=== PATIENT | male | born 1960 | race Two or more races ===

== ENCOUNTER 2017-01-20 04:43 | Emergency (ER) | payer OTHER ==
[~2017-01-20] VITALS: Ht 177.8 cm; Wt 102.1 kg
--- NOTE | 2017-01-20 04:50 | NUR ---
TO BED 1 A 56 YO MALE BIBSELF W C/O DIFFICULTY SWALLOWING, "FEELS LIKE THERE'S SOMETHING STUCK." X2 HRS. NAD NOTED, VSS, AFEBRILE. INITIATED COMFORT MEASURES. AWAITING FOR ER MD CORTEZ.
--- NOTE | 2017-01-20 04:56 | NUR ---
Dr Ramos at bedside.
[2017-01-20] MEDS ORDERED: DEXAMETHASONE SOD PHOSPHATE 10 MG/ML VIAL ONE (05:04)
--- NOTE | 2017-01-20 05:10 | NUR ---
Patient discharged to home in stable condition. Written and verbal after care instructions given. Patient verbalizes understanding of instruction. Patient is ambulatory with steady gait, accompanied by family. no further complaints.
[2017-01-20 05:12] VITALS: BP 157/97
[2017-01-20] MEDS ORDERED: DEXAMETHASONE SOD PHOSPHATE 4 MG/ML VIAL IM ONE (05:30)
== END 2017-01-20 05:16 | disposition home or self-care (01) ==
LOC: ER 04:46
DX: K12.2 Cellulitis and abscess of mouth (principal); R13.10 Dysphagia, unspecified
CPT/HCPCS: A4606; J1100; Z7610

== ENCOUNTER 2017-07-17 03:11 | Emergency (ER) | payer OTHER ==
[~2017-07-17] VITALS: Ht 177.8 cm; Wt 81.6 kg
--- NOTE | 2017-07-17 04:37 | NUR ---
PT AMBULATORY TO ER BED 5. PT BIB FAMILY FROM HOME C/O "HIGH BLOOD PRESSURE". PT PLACED IN GOWN AND ON COUNTER ROLLER. VSS/RESP EVEN UNLABORED/NAD NOTED/SKIN WARM AND DRY/DENIES N-V-D/AOX4. AWAITING MD CORTEZ.
--- NOTE | 2017-07-17 04:47 | NUR ---
MD AT BEDSIDE FOR EVAL. EMT AT BEDSIDE FOR EKG.
[2017-07-17] MEDS ORDERED: ALPRAZOLAM 0.5 MG TABLET ONE (04:58)
[2017-07-17] MEDS ORDERED: ONDANSETRON 4 MG TAB.RAPDIS ONE (04:58)
[2017-07-17] MEDS ORDERED: ONDANSETRON 4 MG TAB.RAPDIS SL ONE (05:00)
[2017-07-17] MEDS ORDERED: ALPRAZOLAM 0.5 MG TABLET PO ONE (05:00)
[2017-07-17 05:04] LABS: APPEARANCE,URINE CLEAR (CLEAR); BILIRUBIN,URINE NEGATIVE (NEGATIVE); BLOOD, URINE NEGATIVE Ery/uL (NEGATIVE); COLOR,URINE YELLOW (YELLOW); KETONES,URINE NEGATIVE (NEGATIVE); LEUKOCYTE ESTERASE ,URINE NEGATIVE (NEGATIVE); NITRITE, URINE NEGATIVE (NEGATIVE); PH,URINE 5.5 (5.0-8.0); PROTEIN,URINE NEGATIVE (NEGATIVE); UGLUCOSE NEGATIVE (NEGATIVE); UROBILINOGEN,URINE 0.2 EU/dL (0.2)
--- NOTE | 2017-07-17 05:52 | NUR ---
Patient discharged to home in stable condition. Written and verbal after care instructions given. Patient verbalizes understanding of instruction. Patient ambulatory with a steady gait.
[2017-07-17 05:53] VITALS: BP 138/99
== END 2017-07-17 05:53 | disposition home or self-care (01) ==
LOC: ER 03:13
DX: I10 Essential (primary) hypertension (principal); F10.10 Alcohol abuse, uncomplicated
CPT/HCPCS: 81000-TC; A4606; Q0162; Z7610

== ENCOUNTER 2018-11-11 13:05 | Emergency (ER) | payer OTHER ==
[~2018-11-11] VITALS: Ht 185.4 cm; Wt 93.0 kg
--- NOTE | 2018-11-11 13:10 | NUR ---
AAOx3, C/O CP on/off x 4-5 days, WORST TODAY; HE CAME TO SEE HIS PCP; NITRO SL GIVEN THEN THE patient PASSED OUT, HIS PCP CALLED 911, ASA 325 PO X 1, BS- 131MM/DL. Placed on the monitor. Dr Nolan at BS for eval.
[2018-11-11 13:33] LABS: BASOPHILS # (AUTO) 0.1 /CMM (0.0-0.2); BASOPHILS % (AUTO) 0.8 % (0.0-2.0); EOSINOPHILS % (AUTO) 0.9 % (0.0-6.0); HEMATOCRIT 42 % (39-51); HEMOGLOBIN 14.3 g/dL (13.5-17.5); LYMPHOCYTES # (AUTO) 1.6 /CMM (0.8-4.8); LYMPHOCYTES % (AUTO) 23.4 % (20.0-44.0); MEAN CORPUSCULAR HGB CONC 34 g/dl (31.0-36.0); MEAN CORPUSCULAR VOLUME 89 fL (80-96); MONOCYTES # (AUTO) 0.6 /CMM (0.1-1.30); MONOCYTES % (AUTO) 8.1 % (2.0-12.0); NEUTROPHILS # (AUTO) 4.6 /CMM (1.8-8.9); NEUTROPHILS % (AUTO) 66.8 % (43.0-81.0); PLATELET COUNT (AUTO) 210 /CMM (150-450); RED BLOOD CELL COUNT(AUTO) 4.73 MIL/uL (4.5-6.0); WHITE BLOOD COUNT (AUTO) 6.9 K/uL (4.3-11.0)
[2018-11-11 13:36] LABS: CALCIUM, SERUM 8.9 mg/dL (8.5-10.1); CARBON DIOXIDE 30 mmol/L (21-32); CHLORIDE 105 mmol/L (98-107); GLUCOSE 109 mg/dL (74-106); POTASSIUM 4.2 mmol/L (3.5-5.1); SODIUM SERUM 141 mmol/L (136-145); UREA NITROGEN, BLOOD 20 mg/dL (7-18)
[2018-11-11 13:42] LABS: ALANINE AMINOTRANSFERASE 29 U/L (12-78); ALBUMIN 3.8 g/dL (3.4-5.0); ALKALINE PHOSPHATASE 42 U/L (46-116); ASPARTATE AMINOTRANSFERASE 17 U/L (15-37); BILIRUBIN,DIRECT 0.1 mg/dL (0.0-0.2); BILIRUBIN,TOTAL 0.6 mg/dL (0.2-1.0)
[2018-11-11] MEDS ORDERED: PRAV40TA3 PO (14:24)
[2018-11-11] MEDS ORDERED: IBUP-1957 PO (14:24)
[2018-11-11] MEDS ORDERED: CLON0.1T PO (14:24)
[2018-11-11] MEDS ORDERED: LISI10TA5 PO (14:24)
--- NOTE | 2018-11-11 15:22 | NUR ---
TURNED IN MOVE SHEET, AWAITING INSURANCE APPROVAL.
--- NOTE | 2018-11-11 16:20 | NUR ---
Patient is resting comfortably in bed with eyes closed. Easily aroused. VSS
[2018-11-11] MEDS ORDERED: ENOXAPARIN SODIUM 60 MG/0.6 ML DISP.SYRIN SQ ONE ×2 (16:30→16:52)
[2018-11-11] MEDS ORDERED: ENOXAPARIN SODIUM 30 MG/0.3 ML DISP.SYRIN ONE (16:52)
--- NOTE | 2018-11-11 17:30 | NUR ---
Patient is resting comfortably in bed with eyes closed. Easily aroused. VSS
--- NOTE | 2018-11-11 19:09 | NUR ---
REPORT RECEIVED FROM LUPE EVANS FOR [facility].
--- NOTE | 2018-11-11 19:57 | NUR ---
[facility] EQUAL OPPORTUNITY COUNSELOR FOR [facility] CALLED. PT IS GOING TO [facility] ROOM [facility], NURSE HILTON [phone] FOR NURSE TO NURSE REPORT. AMBULANCE ETA 2230. [employer] NUMBER FOR TRANPORT [id number]. TRIP # [id number]
--- NOTE | 2018-11-11 20:47 | NUR ---
[facility] WORKERS COMPENSATION ADMINISTRATOR MURPHY CALLED WITH NEW ETA FOR TRANSPORT ([id number]) VIA [facility] .
--- NOTE | 2018-11-11 21:14 | NUR ---
REPORT GIVEN TO LUPE KUO AT [facility]. PATIENT GOING TO 318-B.
--- NOTE | 2018-11-11 21:31 | NUR ---
REPORT GIVEN TO EMT WITH [facility] FOR TRANSFER.
[2018-11-11 21:38] VITALS: BP 131/89
== END 2018-11-11 21:57 | disposition short-term general hospital (02) ==
LOC: ER 13:08
DX: R07.89 Other chest pain (principal); I10 Essential (primary) hypertension; F10.10 Alcohol abuse, uncomplicated; R00.1 Bradycardia, unspecified; Y90.9 Presence of alcohol in blood, level not specified
CPT/HCPCS: 36415; 71045; 80048; 80076; 84484; 85025; 87081; 93005 ×2; 96372; 99285; J1650 ×2